=== PATIENT | female | born 1935 | race American Indian/Alaskan Native ===

== ENCOUNTER 2016-06-15 16:28 | Emergency (ER) | payer SELFPAY ==
[2016-06-15 16:39] VITALS: BP 105/58
== END 2016-06-15 19:20 | disposition left against medical advice (07) ==
LOC: ED 16:28
DX: Z53.21 Procedure and treatment not carried out due to patient leaving prior to being seen by health care provider (principal)

== ENCOUNTER 2016-12-21 08:40 | Emergency (ER) | payer MEDICARE ==
[2016-12-21 09:34] VITALS: BP 135/71
--- NOTE | 2016-12-21 12:25 | Emergency Department Report ---
HPI - General Chief Complaint: Extremity Problem,Nontraumatic Time Seen by Provider: 12/21/16 11:52 - HPI HPI: 81-year-old female presents today complaining of left knee and upper stomach pain 4 months that worsened yesterday. Patient states that there is family history of bone cancer and she is concerned. Patient is requesting a left knee x-ray at this time. Denies numbness, weakness, paresthesias. She said that she has had a bone scan with some findings of her left leg, however she does not remember the report fully. Denies any injury or trauma. Describes her pain as 8 out of 10 with weightbearing in a 4 out of 10 with rest. Denies trying any medication for his pain relief. Denies fever, chills, nausea, vomiting, chest pain, shortness of breath, abdominal pain. ED Past Medical Hx - Past Medical History Previous Medical History?: Yes Hx Hypertension: Yes - Surgical History Past Surgical History?: Yes Hx Coronary Stent: Yes Hx Cholecystectomy: Yes Hx Appendectomy: Yes Additional Surgical History: R masectomy, L. kidney transplant, L shoulder - Social History Smoking Status: Never Smoker Substance Use Type: None - Medications Home Medications: Home Medications Medication Instructions Recorded Confirmed Last Taken Type Acetaminophen/Codeine [Tylenol 1 tab PO QHS PRN #10 tab 12/21/16 Unknown Rx /Codeine # 3 tab] ED Review of Systems ROS: Stated complaint: LEFT KNEE PAIN Other details as noted in HPI Constitutional: denies: chills, fever, malaise Eyes: denies: eye pain ENT: denies: ear pain, throat pain, congestion Respiratory: denies: cough, shortness of breath, wheezing Cardiovascular: denies: chest pain, palpitations Endocrine: no symptoms reported Gastrointestinal: denies: abdominal pain, nausea, vomiting Musculoskeletal: arthralgia Neurological: denies: headache, weakness, numbness, paresthesias Physical Exam - Physical Exam Vital Signs: Vital Signs 12/21/16 09:25 Temperature 97.7 F Pulse Rate 67 Respiratory 66 H Rate Blood Pressure 135/71 O2 Sat by Pulse 100 Oximetry Physical Exam: GENERAL: The patient is well-developed and well-nourished. Patient is in NAD. HEAD: Normocephalic. Atraumatic. NECK: Supple, nontender, without lymphadenopathy. No meningitic signs are noted. CHEST/LUNGS: Clear to auscultation throughout. HEART/CARDIOVASCULAR: Regular rate and rhythm. No murmurs, rubs or gallops. ABDOMEN: Abdomen is soft, nontender. Bowel sounds normoactive. No guarding or rebound tenderness. EXTREMITIES: Tenderness to palpation in the proximal to the left knee joint. Full left knee range of motion. No edema, ecchymosis, deformity or crepitus noted. Normal sensation. Peripheral pulses intact. Capillary refill less than 2 seconds. NEURO: Alert and oriented x 3. Normal gait. ED Course Vital Signs 12/21/16 09:25 Temperature 97.7 F Pulse Rate 67 Respiratory 66 H Rate Blood Pressure 135/71 O2 Sat by Pulse 100 Oximetry ED Medical Decision Making - Lab Data Vital Signs 12/21/16 09:25 Temperature 97.7 F Pulse Rate 67 Respiratory 66 H Rate Blood Pressure 135/71 O2 Sat by Pulse 100 Oximetry - Radiology Data Radiology results: report reviewed Left knee: Pain. The joint is aligned and the joint spaces and articular surfaces are well maintained. The bones are well-mineralized. There is calcification of the distal femoral artery however the soft tissues are otherwise remarkable and there is no effusion. Impression: No bone or joint pathology identified. - Medical Decision Making 81-year-old female presents today complaining of left knee pain 4 months. Her x-ray results reveal no bone or joint pathology. Patient has been provided with a referral for orthopedic. Patient is in no acute distress at this time. She will be discharged home and is encouraged to follow up with a primary care provider. She will be sent home on Tylenol 3 and is encouraged to return to the emergency room for any worsening symptoms. Discussed fall risk with the patient, patient expressed understanding. Critical care attestation.: If time is entered above; I have spent that time in minutes in the direct care of this critically ill patient, excluding procedure time. ED Disposition Clinical Impression: Knee pain Qualifiers: Chronicity: acute Laterality: left Qualified Code(s): M25.562 - Pain in left knee Disposition: - TO HOME OR SELFCARE Is pt being admited?: No Does the pt Need Aspirin: No Condition: Stable Instructions: Arthralgia (ED) Additional Instructions: Follow-up with primary care provider and orthopedic. Return to the emergency department if symptoms worsen. Prescriptions: Acetaminophen/Codeine [Tylenol /Codeine # 3 tab] 1 tab PO QHS PRN #10 tab PRN Reason: Pain Referrals: PRIMARY CAREMD [Primary Care Provider] - 3-5 Days MAXIMUS MALIK MD [Staff Physician] - 3-5 Days Forms: Work/School Release Form(ED) Time of Disposition: 13:31
--- NOTE | 2016-12-21 13:18 | XRay Report ---
Left knee: Pain. The joint is aligned and the joint spaces and articular surfaces are well maintained. The bones are well-mineralized. There is calcification of the distal femoral artery however the soft tissues are otherwise remarkable and there is no effusion. Impression: No bone or joint pathology identified.
== END 2016-12-21 14:15 | disposition home or self-care (01) ==
LOC: EDBD → ED 08:40
DX: M25.562 Pain in left knee (principal); I10 Essential (primary) hypertension

== ENCOUNTER 2017-10-21 12:24 | Emergency (ER) | payer MEDICARE ==
[2017-10-21 12:32] VITALS: BP 169/79
--- NOTE | 2017-10-21 13:22 | Emergency Department Report ---
Minor Respiratory - HPI Chief Complaint: Upper Respiratory Infection Stated Complaint: THROAT/COUGH Time Seen by Provider: 10/21/17 13:03 Duration: 2 Days Pain Location: Throat, Chest Severity: moderate Minor Respiratory: Yes Sore Throat, Yes Able to Tolerate Fluids, Yes Cough ( mildly productive), No Rhinorrhea, No Ear Pain, No Sick Contacts, No Hemoptysis , No Chest Pain, No Shortness of Breath, No Fever ED Review of Systems ROS: Stated complaint: THROAT/COUGH Other details as noted in HPI Comment: All other systems reviewed and negative ED Past Medical Hx - Past Medical History Hx Hypertension: Yes - Surgical History Hx Coronary Stent: Yes Hx Cholecystectomy: Yes Hx Appendectomy: Yes Additional Surgical History: R masectomy, L. kidney transplant, L shoulder - Social History Smoking Status: Never Smoker Substance Use Type: None - Medications Home Medications: Home Medications Medication Instructions Recorded Confirmed Last Taken Type Acetaminophen/Codeine [Tylenol 1 tab PO QHS PRN #10 tab 12/21/16 Unknown Rx /Codeine # 3 tab] ALBUTEROL Inhaler [ProAir HFA 2 puff IH QID PRN #1 inhalation 10/21/17 Unknown Rx Inhaler] Azithromycin [Zithromax Z-JAIDEN] 250 mg PO DAILY #6 tablet 10/21/17 Unknown Rx predniSONE [Deltasone] 10 mg PO QDAY #5 tab 10/21/17 Unknown Rx Minor Respiratory Exam - Exam General: Vital signs noted. No distress. Alert and acting appropriately. HEENT: Yes Pharyngeal Erythema (mild, post nasal drip), Yes Moist Mucous Membranes, No Pharyngeal Exudates, No Rhinorrhea, No Conjuctival Injection, No Frontal Tenderness, No Maxillary Tenderness Ear: Neither TM Bulge, Neither TM Erythema, Neither EAC Pain, Neither EAC Discharge Neck: Yes Supple, No Adenopathy Lungs: Yes Good Air Exchange, No Wheezes, No Ronchi, No Stridor, No Cough, No Labored Respirations, No Retractions, No Use of Accessory Muscles, No Other Abnormal Lung Sounds Heart: Yes Regular, No Murmur Abdomen: Yes Normal Bowel Sounds, No Tenderness, No Peritoneal Signs Skin: No Rash, No Edema Neurologic: Alert and oriented, no deficits. Musculoskeletal: Unremarkable. ED Course Vital Signs 10/21/17 12:29 Temperature 98.1 F Pulse Rate 64 Respiratory 20 Rate Blood Pressure 169/79 O2 Sat by Pulse 97 Oximetry ED Medical Decision Making - Medical Decision Making Patient will be started on Z-Jaiden and miss her symptomatically be discharged home. Critical care attestation.: If time is entered above; I have spent that time in minutes in the direct care of this critically ill patient, excluding procedure time. ED Disposition Clinical Impression: Upper respiratory infection Qualifiers: URI type: unspecified URI Qualified Code(s): J06.9 - Acute upper respiratory infection, unspecified Disposition: TO HOME OR SELFCARE Is pt being admited?: No Does the pt Need Aspirin: No Condition: Stable Instructions: Upper Respiratory Infection (ED) Referrals: NILS MEJIAS MD [Primary Care Provider] - 3-5 Days Time of Disposition: 13:21
== END 2017-10-21 13:48 | disposition home or self-care (01) ==
LOC: ED 12:24
DX: J06.9 Acute upper respiratory infection, unspecified (principal); I10 Essential (primary) hypertension; Z90.49 Acquired absence of other specified parts of digestive tract; Z90.11 Acquired absence of right breast and nipple
CPT/HCPCS: 99282